=== PATIENT | male | born 1965 | race Caucasian/White ===

== ENCOUNTER 2017-12-12 11:16 | Emergency (ER) | payer BC ==
[2017-12-12] MEDS: LISSAMINE GREEN OPHTH 1.5 MG STRIP OU (11:50)
[2017-12-12] MEDS: TETRACAINE 0.5% OPHTH SOLN 4ML OU (11:51)
[2017-12-12] MEDS: IRRIGATION OPHTH SOLN (EYE WASH) 120ML OU (12:21)
[2017-12-12] MEDS: ERYTHROMYCIN OPHTH OINT OU (13:17)
== END 2017-12-12 13:20 | disposition home or self-care (01) ==
LOC: M ED 11:16
DX: S05.01XA Injury of conjunctiva and corneal abrasion without foreign body, right eye, initial encounter (principal); S05.02XA Injury of conjunctiva and corneal abrasion without foreign body, left eye, initial encounter; X58.XXXA Exposure to other specified factors, initial encounter; Y92.89 Other specified places as the place of occurrence of the external cause; I10 Essential (primary) hypertension; Z79.899 Other long term (current) drug therapy
CPT/HCPCS: 99284